=== PATIENT | female | born 1975 | race Caucasian/White ===

== ENCOUNTER 2019-05-11 11:11 | Emergency (ER) | payer OTHER, SELFPAY ==
[2019-05-11 11:31] VITALS: BP 125/94; PULSE 74; RESP 18; TEMP 36.7; O2SAT 100
--- NOTE | 2019-05-11 11:42 | ED.URI ---
HPI - URI/Sore Throat General Chief Complaint: Upper Respiratory Infection Stated Complaint: cough/laryngitis Time Seen by Provider: 05/11/19 11:40 Source: patient Mode of arrival: ambulatory Limitations: no limitations History of Present Illness HPI Narrative: Jillian Mcrae is a 43 yo female with no PMH who comes to express care with complaints of laryngitis and cough that started on Wednesday; yesterday she started coughing up green drainage Related Data Allergies Allergy/AdvReac Type Severity Reaction Status Date / Time codeine AdvReac Nausea and Verified 05/11/19 11:33 Vomiting Sulfa (Sulfonamide AdvReac Nausea and Verified 05/11/19 11:33 Antibiotics) Vomiting Review of Systems Review of Systems: Narrative: CONSTITUTIONAL: Denies fever, chills, sweats. EYES: Denies visual changes, redness, discharge. ENT:Has rhinorrhea, has congestion, sore throat, otalgia. CARDIOVASCULAR: Denies chest pain, palpitations, edema. RESPIRATORY: Denies dyspnea, wheezing, has cough GASTROINTESTINAL: Denies abdominal pain, nausea, vomiting, diarrhea. GENITOURINARY: Denies dysuria, hematuria, abnormal discharge SKIN: Denies rash or itching. MUSCULOSKELETAL: Denies acute back pain, joint pain, or myalgia. NEUROLOGIC: Denies numbness, or focal weakness. PSYCHIATRIC: Denies anxiety or depression. [facility] Family History Family History Grandparent COPD (chronic obstructive pulmonary disease) Social History Social History (Updated 05/11/19 @ 11:46 by Nancy Patel CNP) Smoking status: Never smoker Alcohol intake: current Comments At time of signature, I agree with nursing past medical, surgical, social and family history. There is no relevant family history pertinent to the presenting complaint. Exam Narrative: Exam Narrative: GENERAL: This is a well-nourished, well-developed patient, in no apparent distress. HEAD: normocephalic, atraumatic. EYES: Sclera clear/white. Vision is grossly intact. EARS: External ears normal, auditory canals clear and without drainage, TMs normal without perforation. Hearing grossly intact. NOSE: External nose normal with no obvious nasal discharge, nares without redness, has rhinorrhea. THROAT: Mucous membranes moist, posterior pharynx erythema no exudate-voice muffled NECK: Neck supple, non-tender CARDIOVASCULAR: Regular rate and rhythm without murmurs, gallops, or rubs. RESPIRATORY: Clear to auscultation. Breath sounds equal bilaterally. No wheezes, rales, or rhonchi. GASTROINTESTINAL: Abdomen soft, non-tender, SKIN: warm, intact with no suspicious lesions or rash, NEURO: awake, alert, and oriented to person, place and time. There were no obvious focal neurologic abnormalities. Steady gait EXTREMITIES: Normal range of motion. BACK: Nontender without deformity. Course Course Emergency Course: started on mucinex, prednisone, codeine cough syrup Vital Signs Vital signs: Vital Signs Temperature 98.1 F 05/11/19 11:31 Pulse Rate 74 05/11/19 11:31 Respiratory Rate 18 05/11/19 11:31 Blood Pressure 125/94 H 05/11/19 11:31 Pulse Oximetry 100 05/11/19 11:31 Temperature 98.1 F 05/11/19 11:31 Pulse Rate 74 05/11/19 11:31 Respiratory Rate 18 05/11/19 11:31 Blood Pressure 125/94 H 05/11/19 11:31 Pulse Oximetry 100 05/11/19 11:31 MDM - URI/Sore Throat Differential Diagnosis Differential diagnosis: Likely upper respiratory infection, sinusitis and other Discharge Plan Discharge Clinical Impression: Laryngitis, Cough Upper respiratory infection Qualifiers: URI type: unspecified viral URI Qualified Code(s): J06.9 - Acute upper respiratory infection, unspecified Patient Disposition: Home, Self-Care Condition: Stable Instructions: Laryngitis (ED), Acute Cough (ED) Prescriptions: New pseudoephedrine-guaifenesin [Mucinex D] 60-600 mg tablet extended release 12 hr 1 tablet PO BID PRN
== END 2019-05-11 11:59 | disposition home or self-care (01) ==
PROVIDERS: Emergency Provider Nurse Practitioner
DX: J06.9 Acute upper respiratory infection, unspecified (principal)
CPT/HCPCS: 99203; G0463

== ENCOUNTER 2023-08-11 01:13 | Day surgery (SDC) | payer OTHER, SELFPAY ==
[2023-08-02 13:38] VITALS: BMI 41.6
--- NOTE | 2023-08-02 13:39 | PC.NURSE ---
Addendum entered by Morena Mojica RN 08/03/23 10:19: SPOKE WITH PT REGARDING TAKING VENLAFAXINE AM OF SURGERY. PT STATES HAS NOT TAKEN IN APPROX 1 MONTH AND IS NOT PLANNING ON TAKING AM OF SURGERY. Original Note: Report to the Outpatient Waiting Room, entrance under the green pavilion located off [facility], at time _1130_ on date _[id number]_. Planned Procedure Time: _130pm_. Time changes happen often and if your time is changed the preop area will call you the afternoon before. - You and your visitor will be asked to self-screen and do not enter if you have any COVID symptoms. - A mask is optional within the hospital at this time. Patients may have clear liquids (water, carbonated beverages, clear teas, apple juice) until 3 hours prior to surgery with a maximum of 20 ounces. - No food from midnight until time of surgery Take the following medications with a SIP of water the morning of surgery: ___None DO NOT STOP ANY OF YOUR OTHER PRESCRIPTION MEDICATIONS PRIOR TO SURGERY ?EXCEPT THE FOLLOWING Medications to discontinue per physician ___None Date to take last dose Please no make-up, nail spanish, hairspray, perfume, deodorant, or body powder the day of surgery. No jewelry (including any body piercings) or valuables the day of surgery, leave them at home. Please take a shower or bath the night before, or the morning of, surgery with an antibacterial soap. Wear comfortable, loose fitting clothing. - Jewelry must be removed prior to entering the operating room. Rings and piercings that are not removed may be cut off. - The hospital will not accept responsibility for valuables. - Please leave all valuables, including medications, at home the day of surgery. If you are going home after surgery, a licensed city driver must drive you home. - NO public transportation without another adult if you receive anesthesia. - We recommend that an adult stay with you for 24 hours following discharge. - We also recommend that you do not drive, make important decision, drink alcoholic beverages, or take any drugs that were not prescribed by your health care provider for at least 24 hours after your discharge time. Follow any additional instructions given to you from your surgeon. If you or anyone in your household have experienced Covid symptoms in the past week, please notify your surgeon or the nurse liaison at the phone number below for possible testing. Telephone instructions given to __Carol and asked if any additional questions and then verbalized understanding. Patient advised to call surgeon office or pre surgery nurse liaison [phone] if any additional questions.
[2023-08-11 10:16] VITALS: BP 128/78; PULSE 77; RESP 18; TEMP 36.5; O2SAT 97
[2023-08-11] MEDS: LACTATED RINGERS 1,000 ML 30 ML IV CONT (10:40)
--- NOTE | 2023-08-11 11:12 | WPDANESEPPF ---
Anes - Initial Pre Proc Eval Procedure: Operation Date: 08/11/23 12:00 Proposed Procedures p Hysteroscopy Dilation and Curettage with Giselle Endometrial Ablation - René Degroot MD Date/Time: 08/11/23 11:12 Surgeon: René Degroot MD Pre Op Diagnosis: irregular heavy bleeding, dysmenorrhea Patient Data Age: 48 Gender: F Height: 1.65 m Weight: 112.9 kg Last Vital Signs Temp 36.5 C 08/11/23 10:16 Pulse 77 08/11/23 10:16 Resp 18 08/11/23 10:16 BP 128/78 08/11/23 10:16 Pulse Ox 97 08/11/23 10:16 O2 Del Method Room Air 08/11/23 10:16 Allergies Allergy/AdvReac Type Severity Reaction Status Date / Time ibuprofen AdvReac Severe Abdominal Verified 08/11/23 10:11 Pain codeine AdvReac Nausea and Verified 08/11/23 10:11 Vomiting Sulfa (Sulfonamide AdvReac Nausea and Verified 08/11/23 10:11 Antibiotics) Vomiting Home Medications Medication Instructions Recorded Confirmed Type sumatriptan succinate 100 mg tablet See Rx Instructions PO .COMPLEX 04/21/22 08/11/23 History PRN Migraine Headache trazodone 50 mg tablet See Rx Instructions .Route 07/19/23 08/11/23 Rx .COMPLEX #270 tabs venlafaxine 37.5 mg See Rx Instructions .Route 07/19/23 08/11/23 Rx capsule,extended release 24 hr .COMPLEX #90 caps Patient hx anesthesia problems: none Family hx anesthesia problems: none Results Review: All pre-operative results and documents have been reviewed as part of the pre-operative evaluation. [facility] Past Medical History Medical History (Updated 08/11/23 @ 11:12 by Kain Sparks MD) Anxiety Insomnia Migraines Morbid obesity Surgical History Surgical History H/O lithotripsy Family History Family History Grandparent COPD (chronic obstructive pulmonary disease) Father COPD (chronic obstructive pulmonary disease) Arthritis Asthma Diabetes mellitus Mother Arthritis Asthma Hypertension Sibling No problems noted. Sibling No problems noted. Sibling No problems noted. Sibling No problems noted. Sibling No problems noted. Social History Social History Smoking status: Never smoker Second hand tobacco smoke exposure: No Alcohol intake: current Substance use: never Substance use type: does not use Lack of Transportation: No Lack of Food: Never True Current Housing: I Have Housing Concerned About Future Housing: No Difficulty Paying Gas/Electric Bills: No Difficulty Paying for Meds: No Currently Unemployed: No Education: High School Diploma/GED Difficulty w/ Childcare or Family Care: No Living arrangements: with family Occupation/Education: occupation Gender identity (if verbalized by the patient): Female Sexual Orientation (if Verbalized by the Patient): Straight or Heterosexual Spiritual care concerns: No Anes - Eval Final PreProcedure Day of Procedure 08/11/23 11:12 Patient weight: morbidly obese Heart: regular rate and rhythm Lungs: clear to auscultation Airway: Mallampati scale class II Neurological: alert and oriented Last oral intake: >/= 8 hours ASA classification: III Emergent: no Anesthetic plan: proceed Anesthesia type and monitoring: general GIVS and standard monitoring Results Review: All pre-operative results and documents have been reviewed as part of the pre-operative evaluation. Informed Consent: The patient's anesthetic plan and its attendant risks and benefits were discussed with the patient/family/POA. Questions were solicited and answers provided to the satisfaction of the patient/family/POA.
[2023-08-11] MEDS: ACETAMINOPHEN 500 MG TABLET 1000 MG PO (11:16)
--- NOTE | 2023-08-11 11:25 | PM.IMHP ---
H&P: HPI History of Present Illness Date/Time: 08/11/23 11:25 Chief Complaint: Heavy periods Narrative: 48 y/o with irregular, heavy, painful menses, with passage of clots. Menses have been getting worse. She has been told she has a partial uterine septum. Ultrasound exam shows an endometrial stripe measuring 1.3 cm. She does not desires future childbearing. She is not sexually active. Review of Systems Review of Systems: All systems reviewed & are unremarkable except as noted in HPI and below PMFSH Past Medical History Medical History Anxiety Insomnia Migraines Morbid obesity Surgical History Surgical History H/O lithotripsy Family History Family History Grandparent COPD (chronic obstructive pulmonary disease) Father COPD (chronic obstructive pulmonary disease) Arthritis Asthma Diabetes mellitus Mother Arthritis Asthma Hypertension Sibling No problems noted. Sibling No problems noted. Sibling No problems noted. Sibling No problems noted. Sibling No problems noted. Social History Social History Smoking status: Never smoker Second hand tobacco smoke exposure: No Alcohol intake: current Substance use: never Substance use type: does not use Lack of Transportation: No Lack of Food: Never True Current Housing: I Have Housing Concerned About Future Housing: No Difficulty Paying Gas/Electric Bills: No Difficulty Paying for Meds: No Currently Unemployed: No Education: High School Diploma/GED Difficulty w/ Childcare or Family Care: No Living arrangements: with family Occupation/Education: occupation Gender identity (if verbalized by the patient): Female Sexual Orientation (if Verbalized by the Patient): Straight or Heterosexual Spiritual care concerns: No Meds Home Medications and Allergies Home Medications Medication Instructions Recorded Confirmed Type sumatriptan succinate 100 mg tablet See Rx Instructions PO .COMPLEX 04/21/22 08/11/23 History PRN Migraine Headache trazodone 50 mg tablet See Rx Instructions .Route 07/19/23 08/11/23 Rx .COMPLEX #270 tabs venlafaxine 37.5 mg See Rx Instructions .Route 07/19/23 08/11/23 Rx capsule,extended release 24 hr .COMPLEX #90 caps Allergies Allergy/AdvReac Type Severity Reaction Status Date / Time ibuprofen AdvReac Severe Abdominal Verified 08/11/23 10:11 Pain codeine AdvReac Nausea and Verified 08/11/23 10:11 Vomiting Sulfa (Sulfonamide AdvReac Nausea and Verified 08/11/23 10:11 Antibiotics) Vomiting Vital Signs Vital Signs - 24 hr 08/11/23 10:16 Temperature 36.5 C Pulse Rate 77 Respiratory Rate 18 Blood Pressure 128/78 Pulse Oximetry 97 Oxygen Delivery Room Air Exam Const: Orientation/consciousness: patient oriented x3 Other: Well-developed, well-nourished female in no acute distress. Neck: Thyroid: thyroid normal Lymphatic: no lymphadenopathy noted (in neck, axilla or inguinal nodes) Resp: Effort & Inspection: normal respiratory effort Auscultation: clear to auscultation bilaterally Cardio: Rate: regular rate Rhythm: regular rhythm Heart sounds: S1 normal heart sound present and S2 normal heart sound present GI: Other: ABD: Soft, nontender, nondistended. No guarding or rebound tenderness. No hepatosplenomegaly. : General: Yes no CVA tenderness Other: External genitalia: normal female hair distribution, without lesion. Urethral meatus: no lesion, non prolapsed. Bladder: no mass, nontender Vagina: well-estrogenized, without lesion or discharge. No cystocele or rectocele. Cervix: no lesion or discharge. Uterus: small, anteverted, freely mobile, nontender Adnex
--- NOTE | 2023-08-11 12:21 | WPDHPUPDATE1 ---
History and Physical Update Update Date/Time: 08/11/23 12:21 History and Physical has been reviewed, including an updated exam of the patient. There are NO changes in the patient's condition. Risks, benefits, and alternatives have been discussed and questions answered. Patient agrees to proceed with procedure.
[2023-08-11] MEDS: LIDOCAINE HCL 1% LOCAL INJ 20 ML VIAL 10 ML INFILTRATE (12:57)
--- NOTE | 2023-08-11 13:21 | P.OP_ITS ---
Procedure Note - Detailed Date of Procedure 08/11/23 Pre-op Diagnosis Menometrorrhagia Dysmenorrhea Post-op Diagnosis Same Procedure Performed Hysteroscopy Dilation and sharp curettage Endometrial ablation Surgeon René Degroot MD Anesthesia MAC and Local (1% lidocaine) Findings The endometrial tissue was thick. Both tubal ostia were seen. The uterine septum was very subtle. Description of Procedure The patient was taken to the operating room where she was prepared and draped in the usual sterile fashion in the dorsal lithotomy position. The bladder was drained with a red rubber catheter. A sterile speculum was placed into the vagina. The anterior lip of the cervix was grasped with single-tooth tenaculum. Ten mL of 1% lidocaine was administered in a paracervical block. The cervix was then gently dilated using Hegar dilators until a 7 mm dilator could be passed. Hysteroscopy was performed using sterile saline as a distention medium. Findings are as noted above. Sharp curettage was then performed, and endometrial curettings were collected on a Telfa pad and passed off to be sent to pathology. Because the uterine septum was so subtle, per our preoperative plan, we went ahead with endometrial ablation. The the Giselle device was advan dustin and endometrial ablation commenced without difficulty. The device was withdrawn and a second look was taken using the hysteroscope. Excellent coverage of the endometrial cavity was noted. The tenaculum was removed. Hemostasis was excellent. Sponge, lap, needle and instrument counts were correct. The patient was awakened and taken to the recovery room in stable condition. I was present and scrubbed through the entire procedure. Implants None Estimated Blood Loss 5 Drains No Packing No Pathology Yes (Endometrial curettings) Complications None Condition Stable Disposition PACU
[2023-08-11 13:27] VITALS: BP 116/99; PULSE 80; RESP 16; O2SAT 100
[2023-08-11] MEDS: oxyCODONE HCL (*CRX) 5 MG TAB IR PO (13:59)
[2023-08-11 14:00] VITALS: BP 111/69; PULSE 72; RESP 16
== END 2023-08-11 14:12 | disposition home or self-care (01) ==
PROVIDERS: PCP Physician Assistant Medical; Visit Provider Obstetrics & Gynecology
PROC: 0U5B8ZZ Destruction of Endometrium, Via Natural or Artificial Opening Endoscopic (ICD-10-PCS; CPT 58563; principal; 2023-08-11 12:00)
DX: N92.1 Excessive and frequent menstruation with irregular cycle (principal); N94.6 Dysmenorrhea, unspecified; F41.9 Anxiety disorder, unspecified; E66.01 Morbid (severe) obesity due to excess calories; Z68.41 Body mass index [BMI] 40.0-44.9, adult
CPT/HCPCS: 58563; 88305; A9270; J1100; J2250; J2405; J2704; J3010; J7120

== ENCOUNTER 2023-09-21 03:31 | Day surgery (SDC) | payer OTHER, SELFPAY ==
[2023-09-10 13:44] VITALS: BMI 42.5
--- NOTE | 2023-09-10 13:45 | PC.NURSE ---
Report to the Outpatient Waiting Room, entrance under the green pavilion located off [facility], at time _0900_ on date _[id number]_. Planned Procedure Time: _1100_. Time changes happen often and if your time is changed the preop area will call you the afternoon before. - You and your visitor will be asked to self-screen and do not enter if you have any COVID symptoms. - A mask is optional within the hospital at this time. Patients may have clear liquids (water, carbonated beverages, clear teas, apple juice) until 3 hours prior to surgery with a maximum of 20 ounces. - No food from midnight until time of surgery Take the following medications with a SIP of water the morning of surgery: __None DO NOT STOP ANY OF YOUR OTHER PRESCRIPTION MEDICATIONS PRIOR TO SURGERY ?EXCEPT THE FOLLOWING Medications to discontinue per physician ___Vitamins and supplements Date to take last [id number] Please no make-up, nail kinyarwanda, hairspray, perfume, deodorant, or body powder the day of surgery. No jewelry (including any body piercings) or valuables the day of surgery, leave them at home. Please take a shower or bath the night before, or the morning of, surgery with an antibacterial soap. Wear comfortable, loose fitting clothing. - Jewelry must be removed prior to entering the operating room. Rings and piercings that are not removed may be cut off. - The hospital will not accept responsibility for valuables. - Please leave all valuables, including medications, at home the day of surgery. If you are going home after surgery, a licensed bulk truck driver must drive you home. - NO public transportation without another adult if you receive anesthesia. - We recommend that an adult stay with you for 24 hours following discharge. - We also recommend that you do not drive, make important decision, drink alcoholic beverages, or take any drugs that were not prescribed by your health care provider for at least 24 hours after your discharge time. Follow any additional instructions given to you from your surgeon. If you or anyone in your household have experienced Covid symptoms in the past week, please notify your surgeon or the nurse liaison at the phone number below for possible testing. Telephone instructions given to _Carol and asked if any additional questions and then verbalized understanding. Patient advised to call surgeon office or pre surgery nurse liaison [phone] if any additional questions.
[2023-09-21] VITALS (10 sets, daily range): BP systolic 113–130; BP diastolic 61–84; PULSE 65–88; RESP 12–18; TEMP 36.2–36.8; O2SAT 95–100
--- NOTE | 2023-09-21 08:59 | PM.IMHP ---
H&P: HPI History of Present Illness Date/Time: 09/21/23 08:59 Chief Complaint: Heavy bleeding Narrative: 48 y/o with menometrorrhagia, refractory to conservative management. She had an endometrial ablation, but has continued to have heavy, painful bleeding episodes. Endometrial curettings were benign. She desires definitive management with hysterectomy. Review of Systems Review of Systems: All systems reviewed & are unremarkable except as noted in HPI and below PMFSH Past Medical History Medical History Anxiety Insomnia Migraines Morbid obesity Surgical History Surgical History H/O lithotripsy History of endometrial ablation Family History Family History Grandparent COPD (chronic obstructive pulmonary disease) Father COPD (chronic obstructive pulmonary disease) Arthritis Asthma Diabetes mellitus Mother Arthritis Asthma Hypertension Sibling No problems noted. Sibling No problems noted. Sibling No problems noted. Sibling No problems noted. Sibling No problems noted. Social History Social History Smoking status: Never smoker Second hand tobacco smoke exposure: No Alcohol intake: current Substance use: never Substance use type: does not use Lack of Transportation: No Lack of Food: Never True Current Housing: I Have Housing Concerned About Future Housing: No Difficulty Paying Gas/Electric Bills: No Difficulty Paying for Meds: No Currently Unemployed: No Education: High School Diploma/GED Difficulty w/ Childcare or Family Care: No Living arrangements: with family Occupation/Education: occupation Gender identity (if verbalized by the patient): Female Sexual Orientation (if Verbalized by the Patient): Straight or Heterosexual Spiritual care concerns: No Meds Home Medications and Allergies Home Medications Medication Instructions Recorded Confirmed Type sumatriptan succinate 100 mg tablet See Rx Instructions PO .COMPLEX 04/21/22 09/10/23 History PRN Migraine Headache trazodone 50 mg tablet See Rx Instructions .Route 07/19/23 09/10/23 Rx .COMPLEX #270 tabs venlafaxine 37.5 mg See Rx Instructions .Route 07/19/23 09/10/23 Rx capsule,extended release 24 hr .COMPLEX #90 caps biotin 5,000 mcg disintegrating 10,000 mcg PO DAILY 09/10/23 09/10/23 History tablet cholecalciferol (vit D3) 1,000 1 tablet PO DAILY 09/10/23 09/10/23 History unit-vitamin K2 (MK4) 100 mcg tablet Allergies Allergy/AdvReac Type Severity Reaction Status Date / Time ibuprofen AdvReac Severe Abdominal Verified 09/10/23 13:35 Pain codeine AdvReac Mild Nausea and Verified 09/10/23 13:35 Vomiting Sulfa (Sulfonamide AdvReac Mild Nausea and Verified 09/10/23 13:35 Antibiotics) Vomiting Exam Const: Orientation/consciousness: patient oriented x3 Other: Well-developed, well-nourished female in no acute distress. Neck: Thyroid: thyroid normal Lymphatic: no lymphadenopathy noted (in neck, axilla or inguinal nodes) Resp: Effort & Inspection: normal respiratory effort Auscultation: clear to auscultation bilaterally Cardio: Rate: regular rate Rhythm: regular rhythm Heart sounds: S1 normal heart sound present and S2 normal heart sound present GI: Other: ABD: Soft, nontender, nondistended. No guarding or rebound tenderness. No hepatosplenomegaly. : General: Yes no CVA tenderness Other: External genitalia: normal female hair distribution, without lesion. Urethral meatus: no lesion, non prolapsed. Bladder: no mass, nontender Vagina: well-estrogenized, without lesion or discharge. No cystocele or rectocele. Cervix: no lesion or discharge. Uterus: small, antev
[2023-09-21] MEDS: LACTATED RINGERS 1,000 ML 30 ML IV CONT ×2 (09:45→13:04)
--- NOTE | 2023-09-21 10:29 | WPDANESEPPF ---
Anes - Initial Pre Proc Eval Procedure: Operation Date: 09/21/23 11:00 Proposed Procedures p Robotic Assisted Total Vaginal Hysterectomy with Bilateral Salpingectomy - René Degroot MD Date/Time: 09/21/23 10:29 Surgeon: René Degroot MD Pre Op Diagnosis: Failed Ablation, Excessive Irrg Bleeding Patient Data Age: 48 Gender: F Height: 1.65 m Weight: 115.9 kg Allergies Allergy/AdvReac Type Severity Reaction Status Date / Time ibuprofen AdvReac Severe Abdominal Verified 09/21/23 10:23 Pain codeine AdvReac Mild Nausea and Verified 09/21/23 10:23 Vomiting Sulfa (Sulfonamide AdvReac Mild Nausea and Verified 09/21/23 10:23 Antibiotics) Vomiting Home Medications Medication Instructions Recorded Confirmed Type sumatriptan succinate 100 mg tablet See Rx Instructions PO .COMPLEX 04/21/22 09/10/23 History PRN Migraine Headache trazodone 50 mg tablet See Rx Instructions .Route 07/19/23 09/10/23 Rx .COMPLEX #270 tabs venlafaxine 37.5 mg See Rx Instructions .Route 07/19/23 09/10/23 Rx capsule,extended release 24 hr .COMPLEX #90 caps biotin 5,000 mcg disintegrating 10,000 mcg PO DAILY 09/10/23 09/10/23 History tablet cholecalciferol (vit D3) 1,000 1 tablet PO DAILY 09/10/23 09/10/23 History unit-vitamin K2 (MK4) 100 mcg tablet Patient hx anesthesia problems: none Family hx anesthesia problems: none Results Review: All pre-operative results and documents have been reviewed as part of the pre-operative evaluation. [facility] Past Medical History Medical History Anxiety Insomnia Migraines Morbid obesity Surgical History Surgical History H/O lithotripsy History of endometrial ablation Family History Family History Grandparent COPD (chronic obstructive pulmonary disease) Father COPD (chronic obstructive pulmonary disease) Arthritis Asthma Diabetes mellitus Mother Arthritis Asthma Hypertension Sibling No problems noted. Sibling No problems noted. Sibling No problems noted. Sibling No problems noted. Sibling No problems noted. Social History Social History Smoking status: Never smoker Second hand tobacco smoke exposure: No Alcohol intake: current Substance use: never Substance use type: does not use Lack of Transportation: No Lack of Food: Never True Current Housing: I Have Housing Concerned About Future Housing: No Difficulty Paying Gas/Electric Bills: No Difficulty Paying for Meds: No Currently Unemployed: No Education: High School Diploma/GED Difficulty w/ Childcare or Family Care: No Living arrangements: with family Occupation/Education: occupation Gender identity (if verbalized by the patient): Female Sexual Orientation (if Verbalized by the Patient): Straight or Heterosexual Spiritual care concerns: No Anes - Eval Final PreProcedure Day of Procedure 09/21/23 10:29 Patient weight: morbidly obese Heart: regular rate and rhythm Lungs: clear to auscultation Airway: Mallampati scale Neurological: alert and oriented Last oral intake: >/= 8 hours ASA classification: III Emergent: no Anesthetic plan: proceed Anesthesia type and monitoring: general ETT and standard monitoring Results Review: All pre-operative results and documents have been reviewed as part of the pre-operative evaluation. Pt walks on treadmill several time weekly, no cp or sob. Informed Consent: The patient's anesthetic plan and its attendant risks and benefits were discussed with the patient/family/POA. Questions were solicited and answers provided to the satisfaction of the patient/family/POA.
[2023-09-21] MEDS: ACETAMINOPHEN 500 MG TABLET 1000 MG PO (10:30)
[2023-09-21] MEDS: KETOROLAC 15 MG/ML VIAL (*BKC) IV PUSH (10:31)
--- NOTE | 2023-09-21 11:14 | WPDHPUPDATE1 ---
History and Physical Update Update Date/Time: 09/21/23 11:14 History and Physical has been reviewed, including an updated exam of the patient. There are NO changes in the patient's condition. Risks, benefits, and alternatives have been discussed and questions answered. Patient agrees to proceed with procedure.
[2023-09-21] MEDS: ceFAZolin 2 GM/D5W 50 ML 2 GM/50 ML BAG IVPB (11:20)
--- NOTE | 2023-09-21 13:00 | W.PM.PROC2 ---
Procedure Note - Detailed Date of Procedure 09/21/23 Pre-op Diagnosis Menometrorrhagia Dysmenorrhea Post-op Diagnosis Same Procedure Performed Robotic assisted total vaginal hysterectomy with right salpingectomy. Surgeon René Degroot MD Anesthesia General Findings Uterus, right tube and ovary unremarkable. The left adnexa was obscured by adhesive disease - tube and ovary not seen. Apparent endometriosis implants in anterior and posterior cul de sac. Description of Procedure The patient was taken to the operating room where general endotracheal anesthesia was administered. She was prepared and draped in the usual sterile fashion in the dorsal lithotomy position. The bladder was drained with Angel catheter. The cervix was visualized and the anterior lip was grasped using a single-tooth tenaculum. The cervix was gently dilated using Hegar dilators. The ERIC 2 uterine manipulator was then placed and the tenaculum was removed. Gloves were changed and attention was turned to the abdomen. A supraumbilical skin incision was made with the scalpel. The Veress needle was advanced and pneumoperitoneum was administered using carbon dioxide gas. The bladeless trocar was then advanced. Intraperitoneal placement was confirmed using the laparoscope. Lateral ports and an cosmetic sales assistant port were all placed using bladeless trocars under direct laparoscopic visualization. She was placed in Trendelenburg position and the patient cart was docked. I assumed the console. The ureters were visualized bilaterally. The round ligament on the right was divided. The Fallopian tube on the right was dissected free of the ovary. The uteroovarian ligament was divided. The broad ligament was divided, skeletonizing the uterine artery on the right. The bladder was reflected away. On the left side, adhesions between bowel and the right adnexa were gently, bluntly dissected, but the left tube and ovary were not able to be seen. The round ligament was dissected, followed by the broad ligament and uterine artery, and the bladder was fully reflected away. Colpotomy was performed circumferentially. The specimen was removed and passed off to be sent to pathology. The vaginal cuff was reapproximated using 0 Vicryl in interrupted [id number] fashion. The pelvis was irrigated copiously using warmed normal saline. Rigorous hemostasis was assured. Surgicel was applied to the vaginal cuff. The pedicles were inspected once again. The ports were then withdrawn and the gas was allowed to escape. The skin incisions were reapproximated using 4 0 Monocryl in interrupted subcuticular fashion. Dermaflex was applied externally. Sponge, lap, needle and instrument counts were correct. The patient was awakened and taken to the recovery room in stable condition. I was present and scrubbed through the entire procedure. Implants None Estimated Blood Loss 50 Drains No Packing No Pathology Yes (Uterus, cervix, right Fallopian tube) Complications None Condition Stable Disposition PACU
--- NOTE | 2023-09-21 13:08 | PM.DS ---
DS: Admitting Diagnosis Discharge Date 09/22/23 Admitting Diagnosis Menometrorrhagia Dysmenorrhea DS: Discharge Diagnosis Discharge Diagnosis (1) Dysmenorrhea: Code(s): N94.6 - Dysmenorrhea, unspecified Status: Acute (2) Menometrorrhagia: Code(s): N92.1 - Excessive and frequent menstruation with irregular cycle Status: Acute DS: Summary Hospital Course Hospital Course: She was admitted on the date of scheduled surgery. She underwent robotic assisted TVH with right salpinooophorectomy. Postoperatively she did well and was able to go home on POD1. Time Spent with Patient Time attestation: Total time spent providing and/or coordinating discharge services: DS: Data Data Completed and Pending Pending studies at discharge: Pending at discharge 09/21/23 12:26 Surgical [PTH] Routine 09/21/23 12:31 Surgical [PTH] Routine Labs on day of discharge: Labs from last 24 hours 09/21/23 10:01 Blood Type A Negative Antibody Screen Negative Discharge Plan Discharge Patient Disposition: Home, Self-Care Discharge Instructions: Nothing in the vagina for 6 weeks. Call or return if temperature above 100.4? F, increased abdominal pain, increased vaginal bleeding or any new problems. Stand Alone Forms: General Discharge Instructions Follow-up/Referrals: René Degroot MD [Physician] - 3 Weeks Discharge Medications: New hydrocodone-acetaminophen 5-325 mg tablet 1 - 2 tablet PO Q6H PRN (Reason: pain) Qty: 30 0RF Continued vitamin D3-vitamin K2 (MK4) 1,000-100 unit-mcg Tablet 1 tablet PO DAILY biotin 5,000 mcg Tablet,Disintegrating 10,000 mcg PO DAILY sumatriptan succinate 100 mg tablet See Rx Instructions PO .COMPLEX PRN (Reason: Migraine Headache) Rx Instructions: take 1 tab at onset of headache; if no relief, may repeat 1 tab after at least 2 hrs; max = 2 tabs/24 hrs PO venlafaxine 37.5 mg capsule,extended release 24hr See Rx Instructions .ROUTE .COMPLEX Qty: 90 1RF Dose Instruction: TAKE 1 CAPSULE BY MOUTH EVERY DAY Patient Comments: PT STATES HAS NOT TAKEN IN APPROX 1 MONTH Rx Instructions: TAKE 1 CAPSULE BY MOUTH EVERY DAY, says has not been taking. trazodone 50 mg tablet See Rx Instructions .ROUTE .COMPLEX Qty: 270 0RF Dose Instruction: TAKE 1-3 TABLETS BY MOUTH EVERY DAY AT BEDTIME NEEDED INSOMNIA Rx Instructions: TAKE 1-3 TABLETS BY MOUTH EVERY DAY AT BEDTIME NEEDED INSOMNIA Other Ambulatory Orders: Type and Screen 14 Day (Routine) Timeframe: [id number] Location: Determined by Patient Ordered By: René Degroot
--- NOTE | 2023-09-21 13:28 | SUR.PHASEI ---
Simple mask removed at 1324
[2023-09-21] MEDS: fentaNYL CITRATE INJ (*CRX) 100 MCG/2 ML VIAL 25 MCG IV PUSH ×4 (13:33→13:56)
--- NOTE | 2023-09-21 14:25 | PC.NURSE ---
This patient, Jillian Mcrae, was received from PACU per bed to room 289. Patient/family oriented to unit policies and routines
[2023-09-21] MEDS: HYDROcodone/acetaminophen (*CRX) 5-325 MG TABLET 1 TAB PO ×4 (14:47→20:02)
[2023-09-21] MEDS: DEXTROSE 5%/0.45% SOD CHL 1,000 ML 125 ML IV CONT ×2 (14:47→23:11)
[2023-09-21] MEDS: ENOXAPARIN 40 MG/0.4 ML SYRINGE SUB-Q (19:53)
[2023-09-21] MEDS: SIMETHICONE 80 MG TAB.CHEW PO (19:53)
[2023-09-21] MEDS: HYDROcodone/acetaminophen (*CRX) 10-325 MG TABLET 1 TAB PO (23:11)
[2023-09-22 04:30] VITALS: BP 104/64; PULSE 83; RESP 16; TEMP 36.6; O2SAT 98
[2023-09-22] MEDS: HYDROcodone/acetaminophen (*CRX) 10-325 MG TABLET 1 TAB PO ×3 (04:30→12:22)
[2023-09-22 05:03] LABS: Basophils Percent Auto 0.4 % (0.2-1.2); Eosinophils Percent Auto 0.4 % (0-4.4); Hematocrit 37.6 % (37.0-47.0); Hemoglobin 12.4 g/dL (12.0-15.0); Immature Granulocyte Absolute 0.05 K/mm3 (0.00-0.031); Immature Granulocyte Percent A 0.5 % (0-0.5); Lymphocytes Absolute Auto 1.74 K/mm3 (0.9-3.2); Lymphocytes Percent Auto 15.7 % (18.3-44.2); Mean Corpuscular Hemoglobin 29.9 pg (26-34); Mean Corpuscular Volume 90.6 fl (80-100); Mean Platelet Volume 9.4 fl (7.4-10.4); Monocytes Absolute Auto 0.7 K/mm3 (0.1-0.6); Monocytes Percent Auto 6.6 % (2.6-8.5); Neutrophils Absolute Auto 8.5 K/mm3 (1.3-6.7); Neutrophils Percent Auto 76.4 % (45.5-73.1); Platelet Count Result 184 k/mm3 (150-375); Red Blood Count 4.15 M/mm3 (4.2-5.4); Red Cell Distribution Width 12.6 % (11.5-14.5); White Blood Count 11.1 K/mm3 (4.5-10.0)
[2023-09-22 05:13] LABS: Estimated CRCL calculation 93 ml/min; Estimated Glomerular Filt Rate > 60
[2023-09-22] MEDS: SIMETHICONE 80 MG TAB.CHEW PO ×2 (07:24→12:22)
[2023-09-22 08:35] VITALS: BP 96/54; PULSE 85; RESP 16; TEMP 36.8; O2SAT 99
--- NOTE | 2023-09-22 09:00 | PM.GYNPNOP ---
DATABASE ADMINISTRATION MANAGER - A/P Assessment and plan (1) Dysmenorrhea: Code(s): N94.6 - Dysmenorrhea, unspecified Status: Acute Assessment and Plan: A: POD#1, doing well. P: Home to f/u 2-3 weeks. (2) Menometrorrhagia: Code(s): N92.1 - Excessive and frequent menstruation with irregular cycle Status: Acute Postoperative Procedures: Procedures Operation Date: 09/21/23 11:00 Actual Procedure Side Surgeon p Robotic Assisted Total Vaginal Hysterectomy with Right Salpingectomy Right René Degroot MD Time Spent With Patient Time with patient: less than 15 minutes DATABASE ADMINISTRATION MANAGER- PN:Subj Post-Op Subjective Date/time seen: 09/22/23 09:00 Interval history: Pain OK. Tolerating diet. Voiding. Would like to go home. Exam Narrative: AVSS I/O OK ABD soft, nontender. Incisions c/d/i. EXT nontender DATABASE ADMINISTRATION MANAGER - PN: Obj Data Vital Signs Vital Signs: Vital Signs - 24 hr 09/21/23 10:00 09/21/23 13:04 09/21/23 13:15 Temperature 36.8 C 36.2 C L Pulse Rate 88 77 69 Respiratory Rate 18 14 12 Blood Pressure 118/68 115/64 126/82 Pulse Oximetry 99 100 100 Oxygen Delivery Room Air Simple Face Mask Simple Face Mask Oxygen Flow Rate 10 10 09/21/23 13:07 09/21/23 13:30 09/21/23 13:45 Temperature 36.2 C L Pulse Rate 71 68 Respiratory Rate 15 12 Blood Pressure 123/61 118/84 Pulse Oximetry 100 99 95 Oxygen Delivery Simple Face Mask Room Air Room Air Oxygen Flow Rate 10 09/21/23 14:00 09/21/23 14:15 09/21/23 14:30 Temperature 36.2 C L 36.3 C L 36.7 C Pulse Rate 65 70 69 Respiratory Rate 12 15 16 Blood Pressure 113/79 126/79 122/79 Pulse Oximetry 97 98 100 Oxygen Delivery Room Air Room Air Oxygen Flow Rate 09/21/23 20:30 09/21/23 20:30 09/22/23 04:30 Temperature 36.6 C 36.6 C Pulse Rate 69 79 83 Respiratory Rate 16 16 16 Blood Pressure 130/71 104/64 Pulse Oximetry 100 100 98 Oxygen Delivery Room Air Oxygen Flow Rate Intake/Output Intake/Output: Intake & Output 09/19/23 09/20/23 09/21/23 09/22/23 23:59 23:59 23:59 23:59 Intake Total 1800 400 Output Total 2090 1000 Balance -290 -600 Meds/Results Medications: Active Medications Generic Name Dose Route Start Last Admin Trade Name Freq PRN Reason Stop Dose Admin Hydrocodone Bitart/Acetaminophen 1 tab 09/21/23 14:16 09/21/23 20:02 Hydrocodone/Acetaminophen (*Crx) 5-325 Mg Tablet PO 1 tab Q3H PRN Administration Pain Rated 5 or Less Hydrocodone Bitart/Acetaminophen 1 tab 09/21/23 14:16 09/22/23 07:24 Hydrocodone/Acetaminophen (*Crx) 10-325 Mg Tablet PO 1 tab Q3H PRN Administration Pain Rated 6 or Greater Enoxaparin Sodium 40 mg 09/21/23 19:00 09/21/23 19:53 Enoxaparin 40 Mg/0.4 Ml Syringe SUB-Q 40 mg Q24H MADELAINE Administration Dextrose/Sodium Chloride 1,000 mls @ 125 mls/hr 09/21/23 14:16 09/21/23 23:11 Dextrose 5% Sodium Chloride 0.45% IV CONT 125 mls/hr .Q8H MADELAINE Administration Metoclopramide HCl 10 mg 09/21/23 14:16 Metoclopramide Hcl Inj 10 Mg/2 Ml Vial IV PUSH Q6H PRN Nausea Morphine Sulfate 4 mg 09/21/23 14:16 Morphine Sulfate (*Crx) 4 Mg/Ml Inj IV PUSH Q4H PRN Pain Rated 7-10 Naloxone HCl 0.1 mg 09/21/23 14:16 Naloxone Hcl 0.4 Mg/Ml Vial IV PUSH Q2M PRN Respiratory rate less than 10 Non-Formulary Medication 1 each 09/21/23 16:06 Nonformulary Nutritional Supplement XX 09/22/23 16:05 PRN PRN PROTOCOL Ondansetron HCl 4 mg 09/21/23 14:16 Ondansetron Inj 4 Mg/2 Ml Vial IV PUSH Q6H PRN Nausea Simethicone 80 mg 09/21/23 17:00 09/22/23 07:24 Simethicone 80 Mg Tab.Chew PO 80 mg TIDWM MADELAINE Administration Sumatriptan Succinate 100 mg 09/21/23 14:16 Sumatriptan Succinate 25 Mg Tablet PO Q2H PRN Migraine Headache Trazodone HCl 50 - 150 mg 09/21/23 21:00 Trazodone Hcl 50 Mg Tablet BY MOUTH HS PRN Insomnia Labs
== END 2023-09-22 12:33 | disposition home or self-care (01) ==
LOC: ANHSURGERY 13:08 → ANHOB2 17:56
PROVIDERS: PCP Physician Assistant Medical; Visit Provider Obstetrics & Gynecology
PROC: (CPT 58552; principal; 2023-09-21 11:00)
DX: N80.319 Endometriosis of the anterior cul-de-sac, unspecified depth (principal); N80.329 Endometriosis of the posterior cul-de-sac, unspecified depth; N73.6 Female pelvic peritoneal adhesions (postinfective); D25.9 Leiomyoma of uterus, unspecified; N92.1 Excessive and frequent menstruation with irregular cycle; N94.6 Dysmenorrhea, unspecified; N84.0 Polyp of corpus uteri; F41.9 Anxiety disorder, unspecified; E66.01 Morbid (severe) obesity due to excess calories; Z68.41 Body mass index [BMI] 40.0-44.9, adult
CPT/HCPCS: 58552; S2900; 36415; 82565; 85025; 86850; 86900; 86901; 88307; 99199; A9270; J0690; J1100; J1170; J1650; J1885; J2250; J2405; J2704; J3010; J7030; J7120

== ENCOUNTER 2024-03-18 12:17 | Emergency (ER) | payer OTHER, SELFPAY ==
[2024-03-18 12:28] VITALS: BP 116/76; PULSE 95; RESP 18; TEMP 36.6; O2SAT 100
--- NOTE | 2024-03-18 12:36 | ED_ITS ---
HPI - General Adult General Chief complaint: Skin/Abscess/Foreign Body Stated complaint: rash on toes Time Seen by Provider: 03/18/24 12:36 Source: patient Mode of arrival: ambulatory Limitations: no limitations History of Present Illness HPI narrative: 48-year-old female patient presents to the [facility] with complaints of a rash to bilateral feet and toes for the past 4 days. Patient states this episode occurred earlier this year in April and states she has seen her primary doctor and a asset coordinator for this. Her primary doctor placed her on antibiotics and gave her refill on her asset coordinator gave her a cream with a steroid it to help with the rash. Patient states she did start taking the antibiotic and only has about a day left and continues to use the cream but feels like the symptoms are getting worse. Patient describes symptoms as itchy the redness discoloration and feels like her feet are swelling. Denies any history of peripheral vascular disease. Denies any chest pain, shortness of ryland ath, fevers, body aches or chills. Denies any recent injury to the feet. Related Data Home Medications Medication Instructions Recorded Confirmed biotin 5,000 mcg disintegrating 10,000 mcg PO DAILY 09/10/23 12/20/23 tablet cholecalciferol (vit D3) 1,000 1 tablet PO DAILY 09/10/23 12/20/23 unit-vitamin K2 (MK4) 100 mcg tablet cephalexin 500 mg capsule mg 03/18/24 clotrimazole-betamethasone 1 applic topical 03/18/24 %-0.05 % topical cream Allergies Allergy/AdvReac Type Severity Reaction Status Date / Time ibuprofen AdvReac Severe Abdominal Verified 03/18/24 12:36 Pain codeine AdvReac Mild Nausea and Verified 03/18/24 12:36 Vomiting Sulfa (Sulfonamide AdvReac Mild Nausea and Verified 03/18/24 12:36 Antibiotics) Vomiting Review of Systems Review of Systems: CONSTITUTIONAL: Denies fever, chills, or sweats. EYES: Denies visual changes, redness, or discharge. ENT: Denies rhinorrhea, congestion, sore throat, or otalgia. CARDIOVASCULAR: Denies chest pain, palpitations, or edema. RESPIRATORY: Denies cough or dyspnea. GASTROINTESTINAL: Denies abdominal pain, nausea, vomiting, or diarrhea. GENITOURINARY: Denies dysuria or hematuria. SKIN: Denies rash or itching. MUSCULOSKELETAL: Denies back pain, joint pain, or myalgia. Positive redness, bruising and itching and rash to bilateral feet. NEUROLOGIC: Denies headache, numbness, or weakness. PSYCHIATRIC: Denies anxiety or depression. [facility] Past Medical History Medical History Anxiety Insomnia Migraines Morbid obesity Surgical History Surgical History H/O lithotripsy History of endometrial ablation History of hysterectomy Ovaries retained and left tube, 09/21/2023 Family History Family History Grandparent COPD (chronic obstructive pulmonary disease) Father COPD (chronic obstructive pulmonary disease) Arthritis Asthma Diabetes mellitus Mother Arthritis Asthma Hypertension Sibling No problems noted. Sibling No problems noted. Sibling No problems noted. Sibling No problems noted. Sibling No problems noted. Social History Social History Social History: 12/13/23 very confident with medical forms 03/08/24 patient declined SDOH Smoking status: Never smoker Second hand tobacco smoke exposure: No Alcohol intake: current Substance use: never Substance use type: does not use Do You Feel Safe in your Home?: Yes Lack of Transportation: No Lack of Food: Never True Current Housing: I Have Housing Concerned About Future Housing: No Difficulty Paying Gas/Electric Bills: No Difficulty Paying for Meds: No Currently Unemployed: No Education: Bachelor's Degree Difficulty w/ Childcare or Family Care: No Living arrangements: with family Occupation/Education: occupation Gender identity (if verbalized by the patient): Female Sexual Orientation (if Verbalized by the Patient): Straight or Heterosexual Spiritual care concerns: No Comments At the time of my signature I agree with nursing past medical history, surgical, social, and family history. There is no relevant family history pertinent to the presenting complaint. Exam Narrative: GENERAL: Well-appearing, well-nourished, and in no acute distress. HEAD: Normocephalic, atraumatic. EYES: PERRLA and EOMI. ENT: Nares clear, no rhinorrhea or epistaxis. Mucous membranes moist. NECK: Supple. No lymphadenopathy CHEST: Clear to auscultation. No respiratory distress. HEART: Regular rate and rhythm. No murmur heard. Normal peripheral pulses. ABDOMEN: Soft, nontender, nondistended, normal active bowel sounds. EXTREMITIES: Patient able to bear weight and ambulate without pain. No surface trauma. Ecchymosis, and erythema present to bilateral toes in various areas. Nolesions, ulcers or break in skin integrity. The R and L foot is without obvious asymmetry or deformity when compared to the R and L foot. No bony step- off, nontender to palpation over the toes, midfoot or hindfoot or sole. Normal plantar/dorsiflexion, inversion/eversion. Distal motor and neurovascular status are intact. cap refills less than 3 seconds. No coolness noted on palpitation. No warmth noted no concerns for cellulitis infection. SKIN: Warm, dry, no rash. NEURO: No focal deficits. Alert and oriented x3. Course Course Level of Care: Express Care Visit Vital Signs Vital signs: Vital Signs Temperature 36.6 C 03/18/24 12:28 Pulse Rate 95 03/18/24 12:28 Respiratory Rate 18 03/18/24 12:28 Blood Pressure 116/76 03/18/24 12:28 Pulse Oximetry 100 03/18/24 12:28 Oxygen Delivery Room Air 03/18/24 12:28 Temperature 36.6 C 03/18/24 12:28 Pulse Rate 95 03/18/24 12:28 Respiratory Rate 18 03/18/24 12:28 Blood Pressure 116/76 03/18/24 12:28 Pulse Oximetry 100 03/18/24 12:28 Oxygen Delivery Room Air 03/18/24 12:28 vital signs reviewed. Medical Decision Making MDM Narrative Medical decision making narrative: Discussed with patient to continue the antibiotics that she has started as well as continue using the cream that the asset coordinator gave her. I would also recommend starting an antihistamine something such as Zyrtec Claritin Belgica to help with the itching. Discussed with her that this could possibly be a Raynaud's disease but she would need a further workup for that highly recommend that she follow-up with her doctor as scheduled on Wednesday for further chelsey luation and treatment and possible blood work to evaluate further. Today there is no concern for circulation issues and there is no obvious signs of infection. Differential Diagnosis Differential Diagnosis: Differential diagnosis: Contact dermatitis, poison mihaela, poison sumac, psoriasis, eczema, allergic reaction, drug reaction, scabies, tinea syphilis, lung disease, viral exanthema, pityriasis, erythema multiforme. Vital Signs Vital Signs: Vital Signs Temperature 36.6 C 03/18/24 12:28 Pulse Rate 95 03/18/24 12:28 Respiratory Rate 18 03/18/24 12:28 Blood Pressure 116/76 03/18/24 12:28 Pulse Oximetry 100 03/18/24 12:28 Oxygen Delivery Room Air 03/18/24 12:28 Temperature 36.6 C 03/18/24 12:28 Pulse Rate 95 03/18/24 12:28 Respiratory Rate 18 03/18/24 12:28 Blood Pressure 116/76 03/18/24 12:28 Pulse Oximetry 100 03/18/24 12:28 Oxygen Delivery Room Air 03/18/24 12:28 Critical Care Time Critical Care Time Critical Care Time: No Discharge Plan Discharge Clinical Impression: Dermatitis of both feet Patient Disposition: Home, Self-Care Condition: Stable Instructions: Antibiotic Form, Acute Rash (ED), Autoimmune Disease (ED) Additional Instructions: Wash the area with soap and cool water only. Use skin creams/lotion or anti-itch medicine to reduce itchiness Avoid scratching when possible to prevent worsening of the condition and disruption of the skin that could lead to bacterial infection To relieve itching, place a cool washcloth or some ice over the area that itches, rather than scratching Follow up with primary care provider or seek ER if you have trouble breathing, become hoarse, or start wheezing, develop belly cramps, vomiting or feel dizzy. Prescriptions: No Action cephalexin 500 mg capsule clotrimazole-betamethasone 1-0.05 % cream TOPICAL sumatriptan succinate 100 mg tablet See Rx Instructions PO .COMPLEX PRN (Reason: Migraine Headache) Qty: 30 1RF Rx Instructions: take 1 tab at onset of headache; if no relief, may repeat 1 tab after at least 2 hrs; max = 2 tabs/24 hrs PO vitamin D3-vitamin K2 (MK4) 1,000-100 unit-mcg Tablet 1 tablet PO DAILY biotin 5,000 mcg Tablet,Disintegrating 10,000 mcg PO DAILY phentermine 37.5 mg tablet 37.5 mg PO DAILY Qty: 30 0RF Rx Instructions: must administer 30 minutes before or 1-2 hours after breakfast Follow-up/Referrals: Chanel Yadav PA-C [Primary Care Provider] - Time of Disposition: 12:59
== END 2024-03-18 13:05 | disposition home or self-care (01) ==
PROVIDERS: Emergency Provider Nurse Practitioner Family; PCP Physician Assistant Medical
DX: L30.9 Dermatitis, unspecified (principal)
CPT/HCPCS: 99211; G0463

== ENCOUNTER 2024-11-10 12:14 | Emergency (ER) | payer OTHER, SELFPAY ==
--- NOTE | ~2024-11-10 | CT_ITS ---
CLINICAL INDICATION: Right flank and right lower quadrant pain COMPARISON: None. TECHNIQUE: Multiple contiguous axial images of the abdomen and pelvis were performed following the ad ministration of with 100 mL Omnipaque-350 intravenous contrast The dose-length product (DLP) was 903.31 mGy-cm. Automated exposure control and iterative reconstruction technique were employed. FINDINGS/OBSERVATIONS: Visualized lower thorax: The bilateral lung bases are clear. The heart is of normal size, without pericardial effusion. Small hiatal hernia is present. Liver: The liver demonstrates homogeneous enhancement and is not enlarged. Gallbladder and biliary system: The gallbladder is only minimally distended, and otherwise unremarkable. Pancreas: The pancreas enhances homogeneously without ductal dilatation. Spleen: The spleen enhances homogeneously and is not enlarged. Kidneys: The bilateral kidneys enhance symmetrically without hydronephrosis or renal calculi. Adrenal glands: Unremarkable. Gastrointestinal tract: Fecal stasis within the cecum. Appendix: The air-filled appendix is of normal caliber (axial series, images 128 through 134) Vasculature: Unremarkable. Lymph nodes: No pathologically enlarged or morphologically suspicious lymph nodes within the retroperitoneum or at the root of the mesentery. Pelvic structures: The bladder is distended, and otherwise unremarkable. The uterus is surgically absent Multiple cystic foci within the bilateral ovaries. An thin dense band is identified extending medially from the proximal cecum (at the level of the term inal ileum) and extending directly to the cystic right ovary (axial series, images 129 through 150), a finding of uncertain clinical significance. Body wall and musculoskeletal: No significant degenerative disease within the lower thoracic or lumbosacral spine. IMPRESSION: Dense band identified extending medially from the proximal cecum at the level of terminal ileum direc tly to a cystic right ovary, a finding of uncertain clinical significance. The bilateral ovaries are cystic and nodular. The appendix is unremarkable. Reviewed, dictated and finalized at location A. IMPRESSION: Dense band identified extending medially from the proximal cecum at the level o f terminal ileum directly to a cystic right ovary, a finding of uncertain clini vahid significance. The bilateral ovaries are cystic and nodular. The appendix is unremarkable.
--- OUTSIDE RECORDS SUMMARY | 2024-11-10 12:17 | XMS_ITS | Clinical Summary ---
Author Organization [facility] Address [address] [place] [address] Care Team Providers Care Spray Painting Machine Operator Name Role Phone Chanel Yadav Primary Care Provider [phone] Awais Beach MD Unavailable [phone] Allergies Active Allergy Reactions Criticality Noted Date Comments Codeine Nausea only Low Reaction: Nausea, Sulfa (Sulfonamide Antibiotics) Nausea only Low 09/17/2020 Medications acetaminophen (TYLENOL) 500 mg tablet Take 500 mg by mouth every 6 (six) hours as needed for pain Active SUMAtriptan (IMITREX) 100 mg tabletIndicatio ns:Migraine Take 100 mg by mouth once as needed for migraine Active naproxen (ALEVE) 220 mg tablet Take 1 tablet by mouth daily as needed Active clotrimazole-be tamethasone (LOTRISONE) cream APPLY TO AFFECTED AREA ON FEET TWICE A DAY 4 Active phentermine (ADIPEX-P) 37.5 mg tablet TAKE 1 TABLET BY MOUTH EVERY DAY 30 MINUTES BEFORE OR 1-2 HOURS AFTER BREAKFAST 4 Active traZODone (DESYREL) 50 mg tablet 5 Active diphenhydrAMINE 25 mg capsule Take 1 tablet/capsule (25 mg total) by mouth every 6 (six) hours as needed for itching Active biotin 1 mg capsule Take by mouth Active cholecalciferol , vitD3,/vit K2 (VITAMIN D3-VITAMIN K2 ORAL) Take by mouth Active Active Problems Problem Noted Date Diagnosed Date Positive ELO (antinuclear antibody) 05/03/2024 Overview (05/17/2024): 05/03/24: ESR 25, CRP 0.55mg/dL, CBC nl, CMP nl AVISE 05/03/24: ELO 1:320 DFS, RF IgM 5.3, weak positive anti-CL IgM 23 Assessment & Plan (05/22/2024 4:17 PM PAEDIATRICIAN): 48-year-old female with PMHx of anxiety, depression, migraines, and kidney stone c/o episodic bilateral toe swelling, itching, and discoloration along with recent papular rash over a few dorsal toes. Pulses intact with slightly delay of capillary refill. No associated triggers like cold temperatures. Denies arthralgias, photosensitivity, oral/nasal sores, sicca sx, or cardiopulmonary complaints. Rheumatologic evaluation with AVISE panel revealed +ELO 1:320 DFS pattern along with weak positive RF IgM (5.3) and anti-cardiolipin IgM (23). Current complaints do not correlate with low RF which could suggest a false positive. There is no evidence for APS as anti-cardiolipin is a weak positive (<40) and isolated. AVISE was otherwise unremarkable for any other autoantibodies to suggest an autoimmune CTD. Symptoms could suggest Chilblains vs a dermatologic condition. Consider evaluation by dermatology next and she has appt with [facility] on 06/21. Follow up as needed. Seen with Dr. Beach. Assessment & Plan (05/03/2024 4:16 PM PAEDIATRICIAN): 48-year-old female with PMHx of anxiety, depression, migraines, and kidney stone c/o episodic bilateral toe swelling, itching, and discoloration along with recent papular rash over a few dorsal toes. Pulses intact with slightly delay capillary refill. No associated triggers like cold temperatures. Denies arthralgias, photosensitivity, oral/nasal sores, sicca sx, or cardiopulmonary complaints. Due to absence of other symptoms, it is not suspicious for an autoimmune connective tissue disease. Symptoms could suggest Chilblains vs a dermatologic condition. Due to ELO, will order appropriate serologies to further evaluate. If our work up remains unremarkable, consider evaluation by dermatology next. Follow up in 2 weeks. Sooner if needed. Seen with Dr. Beach. 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 COLONOSCOPY DILATION AND CURETTAGE OF UTERUS 08/11/2023 w/ ablation HYSTERECTOMY 09/21/2023 LITHOTRIPSY 09/10/2020 - 10/09/2020 Medical History Medical History Date Comments Personal history of other di seases of the nervous system and sense organs History of migrain e headaches - (Added by TW Conv) Kidney stones Headache Family History Medical History Relation Name Comments Stroke Other 1 Stroke Syndrome - (Added by Conv) Hypertension Other 2 Hypertension - (Added by Conv) Migraines Other 3 Migraine Headac he - (Added by Conv) Relation Name Status Comments Other 1 Other 2 Other 3 Social History Tobacco Use Types Packs/Day Years Used Date Smoking Tobacco: Never Smokeless Tobacco: Never AUDIT-C Answer Date Recorded Q1: How often do you have a drink containing alc ohol? Monthly or less 09/17/2020 Q2: How many drinks containi ng alcohol do you have on a typical day when you are drinking? 3 or 4 09/17/2020 Q3: How often do you have si x or more drinks on one occasion? Less than monthly 09/17/2020 Comments No Sex and Gender Information Value Date Recorded Sex Assigned at Not on file Legal Sex Female 1:54 AM PAEDIATRICIAN Gender Identity Not on file Sexual Orientation Not on file Obstetrics History Last Filed Vital Signs Vital Sign Reading Time Taken Comments Blood Pressure 124/72 05/22/2024 3:21 PM PAEDIATRICIAN Pulse 78 05/22/2024 3:21 PM PAEDIATRICIAN Temperature 37.1 C (98.8 F) 09/17/2020 1:25 PM CDT Respiratory Rate 21 09/17/2020 1:52 PM CDT Oxygen Saturation 97% 05/22/2024 3:21 PM PAEDIATRICIAN Inhaled Oxygen Concentration - - Weight 103 kg (227 lb) 05/22/2024 3:21 PM PAEDIATRICIAN Height 165.1 cm (5' 5) 05/22/2024 3:21 PM PAEDIATRICIAN Body Mass Index 37.77 05/22/2024 3:21 PM PAEDIATRICIAN Plan of Treatment Health Maintenance Due Date Last Done Comments Colon Cancer Screening-Colonoscopy 1974 Depression Screening 1974 Hepatitis C Screening 1974 Hepatitis B Screening 1992 Regular Well Visit/Exam 18-64 1992 Breast Cancer Screening-Mammogram 02/05/2018 02/05/2017, 02/05/2017 Zoster Vaccine (1 of 2) 2024 Influenza Vaccine (#1) 2024 DTaP/Tdap/Td Vaccine (2 - Td or Tdap) 04/02/2026 04/02/2016 Pneumococcal vaccine <65 Aged Out No longer eligible based on patient's age to complete this topic Medical Devices Implanted Type Area Supply Chain Associate Device Identifier Shelf Expiration Date Model / Serial / Lot [employer] Angel 180-222 Contour 6fr 24cm Large Inner Lumen Low Profile Bladder Ramez Taper Latex Free - [id number] Implanted:Qty: 1 on 09/17/2020 by Dimitry Delgadillo MD at [facility] Explanted:10/08 (Quantity not on file) Stent Right: Ureter [employer] Angel 06/24/2023 180-222 / / [id number] Insurance AETNA SIG [id number] AETNA SIG [id number] CIGNA OPEN ACCESS Care Teams Spray Painting Machine Operator Relationship Specialty Start Date End Date Chanel Yadav PA [facility] [place] [address] PCP - General Family Practice 04/13/24 Awais Beach MD [address] [place] [address] Consulting Physician Rheumatology 04/13/24
--- OUTSIDE RECORDS SUMMARY | 2024-11-10 12:17 | XMS_ITS | Referral Summary ---
Author Organization [facility] Address [address] [place] [address] Care Team Providers Care Certified Phlebotomy Technician Name Role Phone Chanel Yadav Primary Care Provider [phone] Awais Beach MD Unavailable [phone] Allergies Active Allergy Reactions Criticality Noted [...] 23 Assessment & Plan (05/22/2024 4:17 PM DISTRICT PLANT SUPERINTENDENT): 48-year-old female with PMHx of anxiety, depression, [...] dermatology next and she has appt with [facility] on 06/21. Follow up as needed. Seen with Dr. Beach. Assessment & Plan (05/03/2024 4:16 PM DISTRICT PLANT SUPERINTENDENT): 48-year-old female with PMHx of anxiety, depression, [...] (09/13/2020): Added automatically from request for surgery [id number] Social History Tobacco Use Types Packs/Day Years [...] on file Legal Sex Female 1:54 AM DISTRICT PLANT SUPERINTENDENT Gender Identity Not on file Sexual Orientation Not on file Last Filed Vital Signs Vital Sign Reading Time Taken Comments Blood Pressure 124/72 05/22/2024 3:21 PM DISTRICT PLANT SUPERINTENDENT Pulse 78 05/22/2024 3:21 PM DISTRICT PLANT SUPERINTENDENT Temperature 37.1 C (98.8 F) 09/17/2020 1:25 PM CDT Respiratory Rate 21 09/17/2020 1:52 PM CDT Oxygen Saturation 97% 05/22/2024 3:21 PM DISTRICT PLANT SUPERINTENDENT Inhaled Oxygen Concentration - - Weight 103 kg (227 lb) 05/22/2024 3:21 PM DISTRICT PLANT SUPERINTENDENT Height 165.1 cm (5' 5) 05/22/2024 3:21 PM DISTRICT PLANT SUPERINTENDENT Body Mass Index 37.77 05/22/2024 3:21 PM DISTRICT PLANT SUPERINTENDENT Plan of Treatment Not on file Medical Devices Implanted Type Area Fish Header Device Identifier Shelf Expiration Date Model / Serial / Lot [employer] Angel 180-222 Contour 6fr 24cm Large Inner Lumen Low Profile Bladder Ramez Taper Latex Free - [id number] Implanted:Qty: 1 on 09/17/2020 by Dimitry Delgadillo MD at [facility] Explanted:10/08 (Quantity not on file) Stent Right: Ureter [employer] Angel 06/24/2023 180-222 / / [id number] Insurance AETNA SIG [id number] AETNA SIG [id number] CIGNA OPEN ACCESS Care Teams Certified Phlebotomy Technician Relationship Specialty Start Date End Date Chanel Yadav PA [facility] [place] [address] PCP - General Family Practice 04/13/24 Awais Beach MD [address] [place] [address] Consulting Physician Rheumatology 04/13/24
--- OUTSIDE RECORDS SUMMARY | 2024-11-10 12:17 | XMS_ITS | Encounter Summary ---
Author Organization [facility] Address [address] [place] [address] Care Team Providers Care Office Executive Name Role Phone No, Physician Primary Care Provider [phone] Chanel Yadav Primary Care Provider Awais Beach MD Unavailable [phone] Encounter Details Date Type Department Care Team (Late st Contact Info) Description 12/02/[address] [facility] - Imaging [address] [place] [address] Transcribed Order, Provider Social History Tobacco Use Types Packs/Day Years [...] on file Legal Sex Female 1:54 AM SUPERINTENDENT COMMISSARY Gender Identity Not on file Sexual Orientation Not on file documented as of this encounter Plan of Treatment Not on file documented as of this encounter Visit Diagnoses Not on filedocumented in this encounter Care Teams Office Executive Relationship Specialty Start Date End Date No, Physician PCP - General 09/13/20 04/12/24 Chanel Yadav PA [address] [place] [address] PCP - General Family Practice 04/13/24 Awais Beach MD [address] [facility] [place] [address] Consulting Physician Rheumatology 04/13/24 documented as of this encounter
--- OUTSIDE RECORDS SUMMARY | 2024-11-10 12:17 | XMS_ITS | Clinical Summary ---
Author Organization [facility] Address [address] [place] [address] Care Team Providers Care Kitchenwhere Maker Name Role Phone Unknown, Provider Primary Care Provider Unavaila ble Source Comments [facility],non-owned Affiliates and Associated Physician Practices is amultiple site organization consisting of ambulatory clinics and hospital sitesin [place], [place], [place] and [place]. This disclosure is being madepursuant to the Care Everywhere program and may not contain all information available regarding this patient. Last updated 17.[facility] Immunizations Immunization Administration Dates Next Due TDAP (7yrs+) 04/02/2016 Social History Tobacco Use Types Packs/Day Years Used Date Smoking Tobacco: Never Assessed Comments Unknown Sex and Gender Information Value Date Recorded Sex Assigned at Not on file Legal Sex Female 4:50 PM DEPILATORY PAINTER Gender Identity Not on file Sexual Orientation Not on file Plan of Treatment Health Maintenance Due Date Last Done Comments COLOGUARD (AGES 45-75) - COL ON CA SCREENING 1974 COLON MONITORING 1974 COLONOSCOPY - COLON CA SCREENING 1974 CT COLONOGRAPHY - COLON CA SCREENING 1974 Colorectal Cancer Screening 1974 FIT - COLON CA SCREENING 1974 FLEX SIG - COLON CA SCREENING 1974 LIPID TESTING 1974 MAMMOGRAM 1974 HIV SCREENING 1989 HEPATITIS C SCREENING 07/28/1992 HEPATITIS B VACCINE (1 of 3 - 19+ 3-dose series) 1993 PAP SMEAR 08/03/1995 COVID-19 VACCINE ( - 2023-2 5 season) 2023 DEPRESSION SCREENING 04/12/2024 PNEUMOCOCCAL VACCINE 50+ (1 of 1 - PCV) 2024 ZOSTER VACCINE (1 of 2) 2024 INFLUENZA VACCINE (#1) 2024 DTAP/TDAP/TD VACCINES (2 - T d or Tdap) 04/02/2026 04/02/2016 HIB VACCINE Aged Out No longer eligi ble based on patient's age to complete this topic HPV VACCINE Aged Out No longer eligi ble based on patient's age to complete this topic MENINGOCOCCAL (Group B) VACC INE SHARED DECISION-MAKING Aged Out No longer eligibl e based on patient's age to complete this topic MENINGOCOCCAL GROUPS A/C/Y/W VACCINE Aged Out No longer eligible b ased on patient's age to complete this topic Insurance [facility] Address: [address] [address] * Guarantor: JILLIAN MCRAE Account Type Relation to Patient Date of Phone Billing Address Personal/Family [address] [place] [phone] CIGNA SELF PAY NO INSURANCE Member Subscriber Plan / Payer (Ef fective for All Dates) Name:Jillian Mcrae Member ID:Not on file Relation to Subscriber:Not on file Name:JLILIAN MCRAE Subscriber ID:Not on file Address: [address] [place], [place] [id number] Payer ID:Not on file Group ID:Not on file Type:Self Pay Address: [place], [place] * Guarantor: JILLIAN MCRAE Account Type Relation to Patient Date of Phone Billing Address Personal/Family [address] CIGNA SELF PAY NO INSURANCE Member Subscriber Plan / Payer (Ef fective for All Dates) Name:Jillian Mcrae Member ID:Not on file Relation to Subscriber:Not on file Name:JILLIAN MCRAE Subscriber ID:Not on file Address: [address] [place] [address] Payer ID:Not on file Group ID:Not on file Type:Self Pay Address: [place], [place] * Guarantor: JILLIAN MCRAE Account Type Relation to Patient Date of Phone Billing Address Personal/Family [address] [place] [address] CIGNA SELF PAY NO INSURANCE Member Subscriber Plan / Payer (Ef fective for All Dates) Name:Jillian Mcrae Member ID:Not on file Relation to Subscriber:Not on file Name:JILLIAN MCRAE Subscriber ID:Not on file Address: [address] [place], [place] [id number] Payer ID:Not on file Group ID:Not on file Type:Self Pay Address: [place], [place] * Guarantor: JILLIAN MCRAE Account Type Relation to Patient Date of Phone Billing Address Personal/Family [address] CIGNA SELF PAY NO INSURANCE Member Subscriber Plan / Payer (Ef fective for All Dates) Name:BronsonKelsy changine Member ID:Not on file Relation to Subscriber:Not on file Name:THORKELSYJILLIAN Subscriber ID:Not on file Address: [address] [place] [address] Payer ID:Not on file Group ID:Not on file Type:Self Pay Address: [place], [place] * Guarantor: JILLIAN MCRAE Account Type Relation to Patient Date of Phone Billing Address Personal/Family [address] [place] [address] CIGNA SELF PAY NO INSURANCE Member Subscriber Plan / Payer (Ef fective for All Dates) Name:Jillian Mcrae Member ID:Not on file Relation to Subscriber:Not on file Name:THORJILLIAN Subscriber ID:Not on file Address: [address] [place], [place] [id number] Payer ID:Not on file Group ID:Not on file Type:Self Pay Address: [place], [place] * Guarantor: JILLIAN MCRAE Account Type Relation to Patient Date of Phone Billing Address Personal/Family [address] [place], [place] [id number] CIGNA SELF PAY NO INSURANCE Member Subscriber Plan / Payer (Ef fective for All Dates) Name:Jillian Mcrae Member ID:Not on file Relation to Subscriber:Not on file Name:THORJILLIAN Chang Subscriber ID:Not on file Address: [address] [place] [phone] Payer ID:Not on file Group ID:Not on file Type:Self Pay Address: [place], [place] Care Teams Kitchenwhere Maker Relationship Specialty Start Date End Date Unknown, Provider PCP - General 04/02/16
[2024-11-10 12:32] VITALS: BP 139/85; PULSE 75; RESP 18; TEMP 36.8; O2SAT 98
--- NOTE | 2024-11-10 12:39 | PC.NURSE ---
No bedside preg done as patient has had a hysterectomy.
[2024-11-10 12:45] LABS: Hematocrit 41.5 % (37.0-47.0); Hemoglobin 13.7 g/dL (12.0-15.0); Immature Granulocyte Percent A 0.4 % (0-0.5); Lymphocytes Absolute Auto 1.56 K/mm3 (0.9-3.2); Mean Corpuscular HGB Conc 33.0 g/dl (32-36); Mean Corpuscular Hemoglobin 29.8 pg (26-34); Mean Corpuscular Volume 90.4 fl (80-100); Nucleated Red Blood Cells Absolute Auto 0.000 K/mm3 (0.0-0.012); Nucleated Red Blood Cells Perc 0.0 % (0.0-0.2); Platelet Count Result 226 k/mm3 (150-375); Red Blood Count 4.59 M/mm3 (4.2-5.4); White Blood Count 7.8 K/mm3 (4.5-10.0)
--- OUTSIDE RECORDS SUMMARY | 2024-11-10 12:49 | XMS_ITS | Referral Summary ---
Author Organization [facility] Address [address] [place] [address] Care Team Providers Care Supervisor Ship Maintenance Services Name Role Phone Chanel Yadav Primary Care Provider [phone] Awais Beach MD Unavailable [phone] Allergies Active Allergy Reactions Criticality Noted [...] 23 Assessment & Plan (05/22/2024 4:17 PM LONG CHAIN QUILLER TENDER): 48-year-old female with PMHx of anxiety, depression, [...] dermatology next and she has appt with [facility] on 06/21. Follow up as needed. Seen with Dr. Beach. Assessment & Plan (05/03/2024 4:16 PM LONG CHAIN QUILLER TENDER): 48-year-old female with PMHx of anxiety, depression, [...] (09/13/2020): Added automatically from request for surgery [id number] Social History Tobacco Use Types Packs/Day Years [...] on file Legal Sex Female 1:54 AM LONG CHAIN QUILLER TENDER Gender Identity Not on file Sexual Orientation Not on file Last Filed Vital Signs Vital Sign Reading Time Taken Comments Blood Pressure 124/72 05/22/2024 3:21 PM LONG CHAIN QUILLER TENDER Pulse 78 05/22/2024 3:21 PM LONG CHAIN QUILLER TENDER Temperature 37.1 C (98.8 F) 09/17/2020 1:25 PM CDT Respiratory Rate 21 09/17/2020 1:52 PM CDT Oxygen Saturation 97% 05/22/2024 3:21 PM LONG CHAIN QUILLER TENDER Inhaled Oxygen Concentration - - Weight 103 kg (227 lb) 05/22/2024 3:21 PM LONG CHAIN QUILLER TENDER Height 165.1 cm (5' 5) 05/22/2024 3:21 PM LONG CHAIN QUILLER TENDER Body Mass Index 37.77 05/22/2024 3:21 PM LONG CHAIN QUILLER TENDER Plan of Treatment Not on file Medical Devices Implanted Type Area Cone Classifier Tender Device Identifier Shelf Expiration Date Model / Serial / Lot [employer] Angel 180-222 Contour 6fr 24cm Large Inner Lumen Low Profile Bladder Ramez Taper Latex Free - [id number] Implanted:Qty: 1 on 09/17/2020 by Dimitry Delgadillo MD at [facility] Explanted:10/08 (Quantity not on file) Stent Right: Ureter [employer] Angel 06/24/2023 180-222 / / [id number] Insurance AETNA SIG [id number] AETNA SIG [id number] CIGNA OPEN ACCESS Care Teams Supervisor Ship Maintenance Services Relationship Specialty Start Date End Date Chanel Yadav PA [facility] [place] [address] PCP - General Family Practice 04/13/24 Awais Beach MD [address] [place] [address] Consulting Physician Rheumatology 04/13/24
--- OUTSIDE RECORDS SUMMARY | 2024-11-10 12:49 | XMS_ITS | Clinical Summary ---
Author Organization [facility] Address [address] [place] [address] Care Team Providers Care Field Health Officer Name Role Phone Unknown, Provider Primary Care Provider Unavaila ble Source Comments [facility],non-owned Affiliates and Associated Physician Practices is amultiple site organization consisting of ambulatory clinics and hospital sitesin [place], [place], [place] and [place]. This disclosure is being madepursuant to the Care Everywhere program and may not contain all information available regarding this patient. Last updated 17.[facility] Immunizations Immunization Administration Dates Next Due TDAP (7yrs+) 04/02/2016 Social History Tobacco Use Types Packs/Day Years Used Date Smoking Tobacco: Never Assessed Comments Unknown Sex and Gender Information Value Date Recorded Sex Assigned at Not on file Legal Sex Female 4:50 PM CONTOUR PATH TAPE MILL OPERATOR Gender Identity Not on file Sexual Orientation [...] patient's age to complete this topic Insurance [facility] Address: [address] [phone] * Guarantor: JILLIAN MCRAE Account Type Relation to Patient Date of Phone Billing Address Personal/Family [address] [place] [phone] CIGNA SELF PAY NO INSURANCE Member Subscriber Plan / Payer (Ef fective for All Dates) Name:Jillian Mcrae Member ID:Not on file Relation to Subscriber:Not on file Name:JILLIAN MCRAE Subscriber ID:Not on file Address: [address] [place], [place] [id number] Payer ID:Not on file Group ID:Not on file Type:Self Pay Address: [place], [place] * Guarantor: JILLIAN MCRAE Account Type Relation to Patient Date of Phone Billing Address Personal/Family [address] CIGNA SELF PAY NO INSURANCE Member Subscriber Plan / Payer (Ef fective for All Dates) Name:Jillian Mcrae Member ID:Not on file Relation to Subscriber:Not on file Name:JILLIAN MCRAE Subscriber ID:Not on file Address: [address] [place] [address] Payer ID:Not on file Group ID:Not on file Type:Self Pay Address: [place], [place] * Guarantor: JILLIAN MCRAE Account Type Relation to Patient Date of Phone Billing Address Personal/Family [address] [place] [address] CIGNA SELF PAY NO INSURANCE Member Subscriber Plan / Payer (Ef fective for All Dates) Name:Jillian Mcrae Member ID:Not on file Relation to Subscriber:Not on file Name:JILLIAN MCRAE Subscriber ID:Not on file Address: [address] [place], [place] [phone] Payer ID:Not on file Group ID:Not on file Type:Self Pay Address: [place], [place] * Guarantor: JILLIAN MCRAE Account Type Relation to Patient Date of Phone Billing Address Personal/Family [address] CIGNA SELF PAY NO INSURANCE Member Subscriber Plan / Payer (Ef fective for All Dates) Name:[place] Member ID:Not on file Relation to Subscriber:Not on file Name:THORKELSYJILLIAN Subscriber ID:Not on file Address: [address] [place] [address] Payer ID:Not on file Group ID:Not on file Type:Self Pay Address: [place], [place] * Guarantor: JILLIAN MCRAE Account Type Relation to Patient Date of Phone Billing Address Personal/Family [address] [place] [address] CIGNA SELF PAY NO INSURANCE Member Subscriber Plan / Payer (Ef fective for All Dates) Name:Jillian Mcrae Member ID:Not on file Relation to Subscriber:Not on file Name:THORJILLIAN Subscriber ID:Not on file Address: [address] [place], [place] [phone] Payer ID:Not on file Group ID:Not on file Type:Self Pay Address: [place], [place] * Guarantor: JILLIAN MCRAE Account Type Relation to Patient Date of Phone Billing Address Personal/Family [address] [place], [place] [phone] CIGNA SELF PAY NO INSURANCE Member Subscriber Plan / Payer (Ef fective for All Dates) Name:Jillian Mcrae Member ID:Not on file Relation to Subscriber:Not on file Name:THORJILLIAN Chang Subscriber ID:Not on file Address: [address] [place] [phone] Payer ID:Not on file Group ID:Not on file Type:Self Pay Address: [place], [place] Care Teams Field Health Officer Relationship Specialty Start Date End Date Unknown, Provider PCP - General 04/02/16
--- OUTSIDE RECORDS SUMMARY | 2024-11-10 12:49 | XMS_ITS | Clinical Summary ---
Author Organization [facility] Address [address] [place] [address] Care Team Providers Care Licensing Engineer Name Role Phone Chanel Yadav Primary Care Provider [phone] Awais Beach MD Unavailable [phone] Allergies Active Allergy Reactions Criticality Noted [...] 23 Assessment & Plan (05/22/2024 4:17 PM VISUAL BASIC .NET DEVELOPER): 48-year-old female with PMHx of anxiety, depression, [...] dermatology next and she has appt with [facility] on 06/21. Follow up as needed. Seen with Dr. Beach. Assessment & Plan (05/03/2024 4:16 PM VISUAL BASIC .NET DEVELOPER): 48-year-old female with PMHx of anxiety, depression, [...] (09/13/2020): Added automatically from request for surgery [id number] Surgical History Surgery Date Site/Laterality Comments HAND [...] on file Legal Sex Female 1:54 AM VISUAL BASIC .NET DEVELOPER Gender Identity Not on file Sexual Orientation Not on file Obstetrics History Last Filed Vital Signs Vital Sign Reading Time Taken Comments Blood Pressure 124/72 05/22/2024 3:21 PM VISUAL BASIC .NET DEVELOPER Pulse 78 05/22/2024 3:21 PM VISUAL BASIC .NET DEVELOPER Temperature 37.1 C (98.8 F) 09/17/2020 1:25 PM CDT Respiratory Rate 21 09/17/2020 1:52 PM CDT Oxygen Saturation 97% 05/22/2024 3:21 PM VISUAL BASIC .NET DEVELOPER Inhaled Oxygen Concentration - - Weight 103 kg (227 lb) 05/22/2024 3:21 PM VISUAL BASIC .NET DEVELOPER Height 165.1 cm (5' 5) 05/22/2024 3:21 PM VISUAL BASIC .NET DEVELOPER Body Mass Index 37.77 05/22/2024 3:21 PM VISUAL BASIC .NET DEVELOPER Plan of Treatment Health Maintenance Due Date [...] this topic Medical Devices Implanted Type Area Ski Lift Operator Device Identifier Shelf Expiration Date Model / Serial / Lot [employer] Angel 180-222 Contour 6fr 24cm Large Inner Lumen Low Profile Bladder Ramez Taper Latex Free - [id number] Implanted:Qty: 1 on 09/17/2020 by Dimitry Delgadillo MD at [facility] Explanted:10/08 (Quantity not on file) Stent Right: Ureter [employer] Angel 06/24/2023 180-222 / / [id number] Insurance AETNA SIG [id number] AETNA SIG [id number] CIG[employer] OPEN ACCESS Care Teams Licensing Engineer Relationship Specialty Start Date End Date Chanel Yadav PA [facility] [place] [address] PCP - General Family Practice 04/13/24 Awais Beach MD [address] [place] [address] Consulting Physician Rheumatology 04/13/24
--- OUTSIDE RECORDS SUMMARY | 2024-11-10 12:49 | XMS_ITS | Encounter Summary ---
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
[2024-11-10 12:57] LABS: Add Urine Microscopic? NO; Appearance Urine Clear (Clear); Glucose Urine UA Negative (Negative); Leukocyte Esterase Ur Negative LEU/UL (Negative); Nitrate Urine Negative (Negative); Specific Grav Ur 1.004 (1.001-1.035)
[2024-11-10 13:02] LABS: Alanine Aminotransferase 24 U/L (6-35); Albumin Level 4.2 g/dL (3.5-5.1); Alkaline Phosphatase 77 U/L (38-126); Anion Gap 8 mmol/L (4-12); Aspartate Amino Transferase 29 U/L (14-36); Bilirubin,Total 0.7 mg/dL (0.2-1.3); Blood Urea Nitrogen 11 mg/dL (7-17); Calcium 9.4 mg/dL (8.4-10.2); Carbon Dioxide 25 mmol/L (22-30); Chloride 104 mmol/L (98-107); Estimated CRCL calculation 82 ml/min; Estimated Glomerular Filt Rate > 60; Glucose 98 mg/dL (65-110); Lipase 79 U/L (23-300); Potassium 3.8 mmol/L (3.4-5.0); Sodium 137 mmol/L (137-145); Total Protein 7.5 g/dL (6.3-8.2)
--- NOTE | 2024-11-10 13:36 | ED.GENADULT ---
HPI - General Adult General Chief complaint: Abdominal Pain Stated complaint: right flank pain Time Seen by Provider: 11/10/24 12:24 History of Present Illness HPI narrative: 49-year-old female present to the emergency department for evaluation for right flank and right lower quadrant abdominal pain. Patient does have prior history of renal calculi. Patient has no prior history of cholecystitis or appendicitis. Patient states pain has been ongoing since yesterday afternoon. Patient describes abdominal pain with associated nausea. At time of evaluation patient is in no significant distress. Patient declined any medications for pain control for nausea control. Related Data Home Medications ?Medication ?Instructions ?Recorded ?Confirmed ?Last Taken ?Type biotin 5,000 mcg disintegrating 10,000 mcg PO DAILY 09/10/23 10/16/24 Unknown History tablet cholecalciferol (vit D3) 1,000 1 tablet PO DAILY 09/10/23 10/16/24 Unknown History unit-vitamin K2 (MK4) 100 mcg tablet Allergies Allergy/AdvReac Type Severity Reaction Status Date / Time ibuprofen AdvReac Severe Abdominal Verified 11/10/24 12:36 Pain codeine AdvReac Mild Nausea and Verified 11/10/24 12:36 Vomiting Sulfa (Sulfonamide AdvReac Mild Nausea and Verified 11/10/24 12:36 Antibiotics) Vomiting Review of Systems Review of Systems: All systems reviewed & are unremarkable except as noted in HPI and below PMFSH Past Medical History Medical History Morbid obesity Migraines Insomnia Anxiety Surgical History Surgical History History of hysterectomy Ovaries retained and left tube, 09/21/2023 History of endometrial ablation H/O lithotripsy Family History Family History Grandparent COPD (chronic obstructive pulmonary disease) Father COPD (chronic obstructive pulmonary disease) Arthritis Asthma Diabetes mellitus Mother Arthritis Asthma Hypertension Sibling No problems noted. Sibling No problems noted. Sibling No problems noted. Sibling No problems noted. Sibling No problems noted. Social History Social History Social History: 08/31/24 very confident with medical forms Smoking status: Never smoker Second hand tobacco smoke exposure: No Alcohol intake: current Substance use: never Substance use type: does not use Do You Feel Safe in your Home?: Yes Lack of Transportation: No Lack of Food: Never True Current Housing: I Have Housing Concerned About Future Housing: No Difficulty Paying Gas/Electric Bills: No Difficulty Paying for Meds: No Currently Unemployed: No Education: Bachelor's Degree Difficulty w/ Childcare or Family Care: No Living arrangements: with family Occupation/Education: occupation Gender identity (if verbalized by the patient): Female Sexual Orientation (if Verbalized by the Patient): Straight or Heterosexual Spiritual care concerns: No Exam Narrative: APPEARANCE: Well appearing, no pain, no distress, well-nourished. HEAD: normocephalic, atraumatic. EYES: PERRLA/EOMI, conjunctivae clear. NOSE: Normal no drainage EARS:TMS clear with good light reflex. THROAT: Pharynx clear, no exudate. NECK: Supple. No adenopathy, no masses. RESPIRATORY: Airway patent, respirations nonlabored. Clear to auscultation bilaterally, no rales, rhonchi, wheezing. CARDIOVASCULAR: Regular rate and rhythm without murmurs rubs or gallops. ABDOMINAL: Right lower quadrant tenderness to palpation MUSCULOSKELETAL: Moves all extremities. Strength/ROM intact, No edema, No calf tenderness. NEURO: Alert. Cranial nerves II through XII intact. Good gait. Good coordination SKIN: Warm, dry. Normal Color Course Vital Signs Vital signs: Vital Signs Temperature 98.2 F 11/10/24 12:32 Pulse Rate 75 11/10/24 12:32 Respiratory Rate 18 11/10/24 12:32 Blood Pressure 139/85 11/10/24 12:32 Pulse Oximetry 98 11/10/24 12:32 Oxygen Delivery Room Air 11/10/24 12:32 Temperature 98.2 F 11/10/24 12:32 Pulse Rate 76 11/10/24 17:20 Respiratory Rate 16 11/10/24 17:20 Blood Pressure 117/86 11/10/24 17:20 Pulse Oximetry 100 11/10/24 17:20 Oxygen Delivery Room Air 11/10/24 12:32 Medical Decision Making MDM Narrative Medical decision making narrative: 49-year-old female presents to the emergency department for evaluation for right flank pain. Patient is currently afebrile with no leukocytosis stable hemoglobin of 13.7. No acute abnormalities on her CMP including normal AST ALT alk-phos and lipase. UA was negative for hematuria and infection. No specific pathology was identified on CT scan. On re-evaluation patient does feel improved and patient appears to be in no distress. Differential Diagnosis Differential Diagnosis: Colitis, diverticulitis, ureteral calculi, UTI, renal calc Vital Signs Vital Signs: Vital Signs Temperature 98.2 F 11/10/24 12:32 Pulse Rate 75 11/10/24 12:32 Respiratory Rate 18 11/10/24 12:32 Blood Pressure 139/85 11/10/24 12:32 Pulse Oximetry 98 11/10/24 12:32 Oxygen Delivery Room Air 11/10/24 12:32 Temperature 98.2 F 11/10/24 12:32 Pulse Rate 76 11/10/24 17:20 Respiratory Rate 16 11/10/24 17:20 Blood Pressure 117/86 11/10/24 17:20 Pulse Oximetry 100 11/10/24 17:20 Oxygen Delivery Room Air 11/10/24 12:32 Lab Data Lab results reviewed: Yes I reviewed the patient's lab results. 11/10/24 12:36 11/10/24 12:36 Labs: Lab Results 11/10/24 11/10/24 Range/Units 12:36 12:37 WBC 7.8 (4.5-10.0) K/mm3 RBC 4.59 (4.2-5.4) M/mm3 Hgb 13.7 (12.0-15.0) g/dL Hct 41.5 (37.0-47.0) % MCV 90.4 (80-100) fl MCH 29.8 (26-34) pg MCHC 33.0 (32-36) g/dl RDW 12.6 (11.5-14.5) % Plt Count 226 (150-375) k/mm3 MPV 8.8 (7.4-10.4) fl Immature Gran % (Auto) 0.4 (0-0.5) % Neut % (Auto) 72.6 (45.5-73.1) % Lymph % (Auto) 20.0 (18.3-44.2) % [place] % (Auto) 5.5 (2.6-8.5) % Eos % (Auto) 0.9 (0-4.4) % Baso % (Auto) 0.6 (0.2-1.2) % Lymph # (Auto) 1.56 (0.9-3.2) K/mm3 [place] # (Auto) 0.4 (0.1-0.6) K/mm3 Eos # (Auto) 0.1 (0-0.3) K/mm3 Baso # (Auto) 0.1 (0.0-0.1) K/mm3 Abs Immat Gran (auto) 0.03 (0.00-0.031) K/mm3 Absolute Neuts (auto) 5.7 (1.3-6.7) K/mm3 Absolute Nucleated RBC 0.000 (0.0-0.012) K/mm3 Nucleated RBC % 0.0 (0.0-0.2) % Sodium 137 (137-145) mmol/L Potassium 3.8 (3.4-5.0) mmol/L Chloride 104 (98-107) mmol/L Carbon Dioxide 25 (22-30) mmol/L Anion Gap 8 (4-12) mmol/L BUN 11 (7-17) mg/dL Creatinine 0.79 (0.7-1.0) mg/dL Estim Creat Clear Calc 82 ml/min Estimated GFR > 60 (59 - ) Glucose 98 (65-110) mg/dL Calcium 9.4 (8.4-10.2) mg/dL Total Bilirubin 0.7 (0.2-1.3) mg/dL AST 29 (14-36) U/L ALT 24 (6-35) U/L Alkaline Phosphatase 77 (38-126) U/L Total Protein 7.5 (6.3-8.2) g/dL Albumin 4.2 (3.5-5.1) g/dL Lipase 79 (23-300) U/L Urine Color Yellow (Yellow) Urine Appearance Clear (Clear) Urine pH 7.0 (5.0-9.0) Ur Specific [place] 1.004 (1.001-1.035) Urine Protein Negative (Negative) mg/dL Urine Glucose (UA) Negative (Negative) mg/dL Urine Ketones Negative (Negative) mg/dL Ur Blood (Man) Negative (Negative) Urine Nitrate Negative (Negative) Urine Bilirubin Negative (Negative) Urine Urobilinogen 0.2 (<2.0) mg/dL Leukocyte Esterase Rfl Negative (Negative) ALCIDES/UL Imaging Data Radiologist's impression: Impressions Abdomen/Pelvis CT 11/10/24 15:14 IMPRESSION: Dense band identified extending medially from the proximal cecum at the level of terminal ileum directly to a cystic right ovary, a finding of uncertain clinical significance. The bilateral ovaries are cystic and nodular. The appendix is unremarkable. Discharge Plan Discharge Clinical Impression: Abdominal pain Patient Disposition: Home Condition: Stable Instructions: Antibiotic Form, Abdominal Pain (ED) Additional Instructions: Scheduled naproxen for pain control. [place] as needed for additional pain control. Have close follow-up with your primary care physician. If you have any worsening symptoms then please call or return to the emergency department. Patient Language: Maori Prescriptions: New hydrocodone-acetaminophen 5-325 mg tablet 1 tablet PO Q12H PRN (Reason: pain) Qty: 10 0RF No Action sumatriptan succinate 100 mg tablet See Rx Instructions PO .COMPLEX PRN (Reason: Migraine Headache) Qty: 30 3RF Rx Instructions: take 1 tab at onset of headache; if no relief, may repeat 1 tab after at least 2 hrs; max = 2 tabs/24 hrs PO vitamin D3-vitamin K2 (MK4) 1,000-100 unit-mcg Tablet 1 tablet PO DAILY biotin 5,000 mcg Tablet,Disintegrating 10,000 mcg PO DAILY phentermine 37.5 mg tablet 37.5 mg PO DAILY Qty: 30 0RF Rx Instructions: must administer 30 minutes before or 1-2 hours after breakfast Follow-up/Referrals: PHYSICIAN NOT ON STAFF,NONSTAFF [Primary Care Provider] -
[2024-11-10] MEDS: HYDROmorphone HCL INJ (*CRX) 2 MG/ML VIAL 0.5 MG IV PUSH (13:54)
[2024-11-10 17:20] VITALS: BP 117/86; PULSE 76; RESP 16; O2SAT 100
== END 2024-11-10 17:36 | disposition home or self-care (01) ==
PROVIDERS: Student in an Organized Health Care Education/Training Program; Emergency Provider Emergency Medicine
DX: R10.31 Right lower quadrant pain (principal); Z90.710 Acquired absence of both cervix and uterus; Z79.899 Other long term (current) drug therapy
CPT/HCPCS: 36415; 74177; 80053; 81003; 83690; 85025; 96374; 99284; J1171; Q9967